=== PATIENT | male | born 1935 | race Caucasian/White ===

== ENCOUNTER 2022-08-04 13:49 | Emergency (ER) | payer OTHER ==
[~2022-08-04] VITALS: Ht 182.8 cm; Wt 72.6 kg
[2022-08-04] MEDS ORDERED: VIBRAMYCIN100 MG PO (16:30)
== END 2022-08-04 16:44 | disposition home or self-care (01) ==
LOC: ED 13:49
DX: L03.114 Cellulitis of left upper limb (principal); L03.113 Cellulitis of right upper limb; Z88.1 Allergy status to other antibiotic agents; Z90.89 Acquired absence of other organs